=== PATIENT | female | born 1995 | race Caucasian/White ===

== ENCOUNTER 2018-06-24 13:24 | Emergency (ER) | payer OTHER ==
[~2018-06-24] VITALS: Ht 162.6 cm; Wt 83.5 kg
[2018-06-25] MEDS ORDERED: PRENATAL TABLE1 EAC1 PO (15:29)
[2018-06-25] MEDS ORDERED: FOLIC ACID1 MG PO (15:30)
== END 2018-06-24 15:22 | disposition home or self-care (01) ==
LOC: ER 13:24
DX: O21.0 Mild hyperemesis gravidarum (principal); Z34.82 Encounter for supervision of other normal pregnancy, second trimester

== ENCOUNTER 2018-06-25 14:47 | Outpatient (CLI) | payer OTHER ==
[2018-06-25] MEDS ORDERED: PRENATAL TABLE1 EAC1 PO (15:29)
[2018-06-25] MEDS ORDERED: FOLIC ACID1 MG PO (15:30)
== END 2018-06-25 20:40 | disposition home or self-care (01) ==
LOC: OBS/DEL 14:47
DX: O21.0 Mild hyperemesis gravidarum (principal); Z34.02 Encounter for supervision of normal first pregnancy, second trimester

== ENCOUNTER 2018-10-06 10:30 | Inpatient (IN) | payer OTHER ==
[~2018-10-06] VITALS: Ht 160 cm; Wt 85.3 kg
[~2018-10-06 10:30] MED LIST: FOLIC ACID1 MG PO; PRENATAL TABLE1 EAC1 PO
[2018-10-21] MEDS ORDERED: IRON325 MG PO (07:01)
[2018-10-21] MEDS ORDERED: AMPICILLIN TRI500 MG PO (07:02)
[2018-10-24] MEDS ORDERED: IRON325 MG PO (09:33)
== END 2018-10-24 10:10 | DRG 807 ==
LOC: OB/GYN 10-21 06:51 → LDR 10-21 06:51 → OB/GYN 10-21 23:20
PROVIDERS: ADMIT Specialist
PROC: 10E0XZZ Delivery of Products of Conception, External Approach (ICD-10-PCS; principal; 2018-10-21)
PROC: 0HQ9XZZ Repair Perineum Skin, External Approach (ICD-10-PCS; 2018-10-21)
PROC: 4A0HXFZ Measurement of Products of Conception, Cardiac Rhythm, External Approach (ICD-10-PCS; 2018-10-21)
DX: O70.0 First degree perineal laceration during delivery (principal); Z37.0 Single live birth; Z3A.38 38 weeks gestation of pregnancy